=== PATIENT | female | born 1985 | race Two or more races ===

== ENCOUNTER 2018-03-09 00:09 | Emergency (ER) | payer SELFPAY ==
[~2018-03-09] VITALS: Ht 154.9 cm; Wt 73.6 kg
[2018-03-09 00:13] VITALS: Ht 154.9 cm; Wt 73.6 kg
[2018-03-09 00:43] LABS: BASOPHILS 0.1 % (0-2); HEMATOCRIT 40.9 % (36.0-48.0); HEMOGLOBIN 13.7 g/dL (12-16); IMMATURE GRANULOCYTES 0.3 % (0-5); MCH 29.9 pg (26.0-34.0); MCHC 33.5 g/dL (31.0-37.0); MCV 89.3 fL (80.0-100.0); MEAN PLATELET VOLUME 10.3 fL (7.4-10.4); MONOCYTES 5.8 % (2-11); NEUTROPHILS 60.8 % (40-80); PLATELET COUNT 253 10x3/uL (130-400); RBC 4.58 10x6/uL (4.00-5.40); RDW 12.9 % (11.5-14.5); WBC 7.6 10x3/uL (4.8-10.8)
[2018-03-09 00:51] LABS: ALBUMIN 3.8 g/dL (3.4-5.0); ALKALINE PHOSPHATASE 59 U/L (46-116); ALT (SGPT) 22 U/L (10-68); BILIRUBIN - TOTAL 0.36 mg/dL (0.2-1.3); CALC OSMOLALITY 279 mosm/kg (275-300); CALCIUM 9.2 mg/dL (8.5-10.1); CARBON DIOXIDE 26.3 mmol/L (21.0-32.0); CHLORIDE - SERUM 104 mmol/L (98-107); CREATININE - SERUM 0.8 mg/dL (0.6-1.3); GLUCOSE 110 mg/dL (74-106); PROTEIN - SERUM 7.9 g/dL (6.4-8.2); SODIUM 139 mmol/L (136-145); UREA NITROGEN 14 mg/dL (7-18); eGFR NON AFRICAN AMERICAN 88 mL/min (90-120)
[2018-03-09] MEDS ORDERED: VENTOLIN HFA18 GM INH (01:18)
[2018-03-09] MEDS ORDERED: FLOVENT HFA 11012 GM INH (01:18)
[2018-03-09 01:32] VITALS: BP 108/51
== END 2018-03-09 01:33 | disposition home or self-care (01) ==
LOC: D.ER 00:09
PROVIDERS: Family Medicine
DX: J45.909 Unspecified asthma, uncomplicated (principal)

== ENCOUNTER 2020-01-01 21:29 | Emergency (ER) | payer SELFPAY ==
[~2020-01-01] VITALS: Ht 154.9 cm; Wt 59.0 kg
[~2020-01-01 21:29] MED LIST: FLOVENT HFA 11012 GM INH; VENTOLIN HFA18 GM INH
[2020-01-01 22:14] VITALS: Ht 154.9 cm; Wt 59.0 kg
[2020-01-01 22:31] LABS: HEMOGLOBIN 13.8 g/dL (12-16); LYMPHOCYTES 30.8 % (15-50); MCH 29.3 pg (26.0-34.0); MCHC 32.1 g/dL (31.0-37.0); MCV 91.3 fL (80.0-100.0); MEAN PLATELET VOLUME 9.9 fL (7.4-10.4); NEUTROPHILS 64.5 % (40-80); PLATELET COUNT 291 10x3/uL (130-400); RBC 4.71 10x6/uL (4.00-5.40); RDW 12.7 % (11.5-14.5); WBC 9.1 10x3/uL (4.8-10.8)
[2020-01-01 22:32] LABS: BILIRUBIN NEGATIVE (NEGATIVE); GLUCOSE NEGATIVE (NEGATIVE); KETONE NEGATIVE (NEGATIVE); NITRITE NEGATIVE (NEGATIVE); UROBILINOGEN NORMAL (NORMAL)
[2020-01-01 22:41] LABS: CALC OSMOLALITY 272 mosm/kg (275-300); CARBON DIOXIDE 28.5 mmol/L (21.0-32.0); CHLORIDE - SERUM 101 mmol/L (98-107); CREATININE - SERUM 0.8 mg/dL (0.6-1.3); GLUCOSE 93 mg/dL (74-106); POTASSIUM - SERUM 3.6 mmol/L (3.5-5.1); RED CELLS - URINE 0-5 /hpf (0-5); SODIUM 137 mmol/L (136-145); UREA NITROGEN 9 mg/dL (7-18); eGFR NON AFRICAN AMERICAN 87 mL/min (90-120)
[2020-01-01 22:42] LABS: BACTERIA FEW /hpf (NEGATIVE)
[2020-01-01 22:46] LABS: ALBUMIN 4.3 g/dL (3.4-5.0); ALKALINE PHOSPHATASE 57 U/L (30-120); ALT (SGPT) 18 U/L (10-68); BILIRUBIN - TOTAL 0.33 mg/dL (0.2-1.3); PROTEIN - SERUM 8.2 g/dL (6.4-8.2)
[2020-01-01 22:53] LABS: HCG SERUM NEGATIVE (NEGATIVE)
[2020-01-01] MEDS ORDERED: MACROBID100 MG PO (23:25)
[2020-01-01] MEDS ORDERED: KEFLEX500 MG PO (23:25)
[2020-01-02 00:33] VITALS: BP 123/70
== END 2020-01-02 00:33 | disposition home or self-care (01) ==
LOC: D.ER 21:29
PROVIDERS: Emergency Medicine
DX: N93.9 Abnormal uterine and vaginal bleeding, unspecified (principal); N83.202 Unspecified ovarian cyst, left side; N39.0 Urinary tract infection, site not specified; J45.909 Unspecified asthma, uncomplicated